=== PATIENT | male | born 1995 ===

== ENCOUNTER 2019-03-09 14:18 | Outpatient (CLI) | payer BC ==
--- NOTE | 2019-03-09 14:47 | ULT ---
Exam: Soft tissue neck ultrasound HISTORY: Pain and swelling. COMPARISON: none TECHNIQUE: Targeted sonographic imaging in the region of concern is performed. FINDINGS: There is no evidence of a solid or cystic mass. No evidence of lymphadenopathy. Nonenlarged 0.6 x 0.3 cm lymph node is noted. IMPRESSION: Unremarkable soft tissue neck ultrasound. No evidence of mass or lymphadenopathy.
== END 2019-03-09 14:19 | disposition home or self-care (01) ==
LOC: BICULT 14:18
PROVIDERS: ATTEND Otolaryngology Otolaryngic Allergy
DX: M54.2 Cervicalgia (principal)
CPT/HCPCS: 76999